=== PATIENT | female | born 1945 | race Hispanic/Latino ===

== ENCOUNTER → 2018-07-04 | Outpatient (CLI) | payer OTHER ==
[~2018-07-04] MED LIST: ACETAMINOPHEN500 MG PO; ACYCLOVIR 5% TP; ADVAIR 250-501 EACH INH; AMITIZA24 MCG PO; ASPIRIN81 MG PO; ATORVASTATIN CA40 MG PO; Aspirin PO; BIOTIN2500 MCG PO; CARVEDILOL12.5 MG PO; CEPHALEXIN500 MG PO; CLOPIDOGREL75 MG PO; DEXILANT60 MG PO; FERROUS SULFAT325 MG PO; FEXOFENADINE H180 MG PO; LEVOTHYROXINE100 MCG PO; LOSARTAN POTAS100 MG PO; MULTIVITAMINS1 EAC7 PO; NITROSTAT0.4 MG SL; OMEGA 3-6-9 CO400 MG PO; PATADAY2.5 ML OU; TIMOLOL 0.5% OD; TRAVATAN Z5 ML OD; TRIAMCINOLONE A15 G1 TOP; ULTRAM50 MG PO; VALACYCLOVIR500 MG PO; VITAMIN C1000 MG PO; VITAMIN D PO; [UNRECOGNIZED DRUG - MIXTURE] TP
--- NOTE | 2018-07-04 11:28 | Diagnostic Imaging Report ---
EXAMINATION: Thyroid ultrasound. CLINICAL HISTORY: Thyroid nodule COMPARISON: Outside CT neck images DISCUSSION: Transverse and longitudinal images of the thyroid were obtained utilizing grayscale and color Doppler modalities. The right thyroid lobe measures 3.3 x 1.7 x 1.8 cm and shows normal echogenicity. Solid(2 points), hypoechoic (2 points), Wider than tall (0 point), smoothly marginated (0 points), no calcifications (0 points) nodule occupies the majority of the right lobe measures 2.9 x 1.6 x 1.5 cm. The left thyroid lobe measures 1.2 x 0.4 x 0.5 cm and shows normal echogenicity. No nodules are seen. The thyroid isthmus measures 0.2 cm and shows normal echogenicity. No nodules are seen. There is no adenopathy. IMPRESSION: Right thyroid nodule, TIRADS 4, FNA recommended and subsequently performed 07/04/18. Signed by: Dr. Vasu Etienne M.D. on 07/04/2018 11:25 AM
--- NOTE | 2018-07-04 14:13 | Diagnostic Imaging Report ---
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 Etienne Pre-operative diagnosis: Right thyroid nodule Post-operative diagnosis: Right thyroid nodule Conscious Sedation: None The patient's heart rate and pulse oximetry were continuously monitored by the interventional radiology nurse. Blood pressure was monitored at 5 minute intervals. Additional Medications: Lidocaine 1% for local anesthesia Estimated blood loss: Minimal Blood products administered: None Specimens: Fine-needle aspiration x5 Implants: None DISCUSSION: Informed consent was obtained and documented in the medical record. Patient was placed in the supine position on the sonographic table. The neck was prepped and draped in the standard sterile fashion. A suitable percutaneous approach to the right thyroid nodule is identified and 1% lidocaine was infiltrated into the skin and subcutaneous tissues for local anesthesia. Then under continuous sonographic guidance a total of 5 fine needle aspiration specimens were obtained using 25-gauge needles. Specimens were submitted to on-site cytopathology personnel and adequacy was confirmed. At the conclusion of sampling a sterile dressing was applied. The patient tolerated the procedure well without immediate complication. IMPRESSION: Successful ultrasound-guided fine-needle aspiration of a right thyroid nodule. Signed by: Dr. Vasu Etienne M.D. on 07/04/2018 2:09 PM
== END ==
LOC: US 09:23
PROVIDERS: ATTEND Otolaryngology
DX: E04.1 Nontoxic single thyroid nodule (principal)
CPT/HCPCS: 10005; 76536; 88112; 88172; 88173

== ENCOUNTER 2018-12-30 08:50 | Outpatient (RCR) | payer MEDICARE, OTHER ==
[~2018-12-30 08:50] MED LIST changes: +ACETAMINOPHEN 1000 MG/100 ML 100 ML IV ONE
== END 2018-12-31 ==
LOC: PT 08:50
PROVIDERS: ATTEND Specialist
DX: S70.01XA Contusion of right hip, initial encounter (principal); M25.551 Pain in right hip; M54.5 Low back pain; M62.81 Muscle weakness (generalized); R26.2 Difficulty in walking, not elsewhere classified; Z96.651 Presence of right artificial knee joint; Z96.641 Presence of right artificial hip joint
CPT/HCPCS: 97110 ×11; 97161; J0131

== ENCOUNTER → 2019-01-24 | Outpatient (CLI) | payer OTHER ==
[~2019-01-24] MED LIST changes: -ACETAMINOPHEN 1000 MG/100 ML 100 ML IV ONE
--- NOTE | 2019-01-24 09:56 | Diagnostic Imaging Report ---
Exam: Thyroid ultrasound Indication: Thyroid nodule Comparison: Thyroid ultrasound of 07/04/2018 DISCUSSION: Transverse and longitudinal images of the thyroid were obtained utilizing grayscale and color Doppler modalities. The right thyroid lobe measures 4.0 x 2.1 x 2.2 cm and shows normal echogenicity. Solid(2 points), hypoechoic (2 points), Wider than tall (0 point), smoothly marginated (0 points), no calcifications (0 points) nodule measures 3.1 x 1.8 x 1.6 cm, similar to the prior ultrasound of 07/04/2018 allowing for differences in technique. The left thyroid lobe measures 1.4 x 0.6 x 0.7 cm and shows normal echogenicity. No nodules are seen. The thyroid isthmus measures 0.2 cm and shows normal echogenicity. No nodules are seen. There is no adenopathy. IMPRESSION: Right thyroid nodule (TIRADS 4) appears similar compared to 07/04/2018. ACR glossary of thyroid rads TI-RADS 1: No focal lesion. TI-RADS 2: Not suspicious. TI-RADS 3: Mildly suspicious (recommend FNA is greater than or equal to 2.5 cm; follow-up at 1, 3, and 5 years if greater than or equal to 1.5 cm) TI-RADS 4: Moderately Suspicious (recommend FNA is greater than or equal to 1.5 cm; follow-up at 1, 2, 3, and 5 years) TI-RADS 5: Highly suspicious (recommend FNA is greater than or equal to 10 mm) TI-RADS 6: Biopsy-proven malignancy Signed by: Tania Koehler MD on 01/24/2019 9:53 AM
== END ==
LOC: US 08:18
PROVIDERS: ATTEND Otolaryngology
DX: E04.1 Nontoxic single thyroid nodule (principal)
CPT/HCPCS: 76536

== ENCOUNTER → 2019-06-22 | Outpatient (CLI) | payer OTHER ==
--- NOTE | 2019-06-22 11:54 | Diagnostic Imaging Report ---
Exam: Thyroid ultrasound Clinical History: Thyroid nodules Findings: Transverse and longitudinal images of the thyroid gland were obtained. The right and the left lobe measured 3.8 x 1.5 x 1.9 cm and 3.4 x 0.8 x 1.2 cm respectively. The isthmus measured 1 mm in thickness. Indication: Region right lobe, 0.9 x 1.5 x 1.9 cm heterogeneously appearing isoechoic solid nodule is noted. It is hypervascular on color Doppler demonstrates area of hypoechogenicity which may represent microcalcifications. Impression: 1. Right lobe thyroid nodule as described. If indicated, tissue diagnosis can be performed for further assessment. Signed by: Dr. Yoav Wilson MD on 06/22/2019 11:51 AM
== END ==
LOC: US 10:41
PROVIDERS: ATTEND Otolaryngology
DX: E04.1 Nontoxic single thyroid nodule (principal)
CPT/HCPCS: 76536

== ENCOUNTER → 2020-06-11 | Outpatient (CLI) | payer MEDICARE, OTHER | LOC: US 14:42 | PROVIDERS: ATTEND Otolaryngology | DX: E04.1 Nontoxic single thyroid nodule (principal) | CPT/HCPCS: 76536 ==

== ENCOUNTER → 2021-04-09 | Outpatient (CLI) | payer MEDICARE, OTHER | LOC: DX 08:17 | PROVIDERS: ATTEND Otolaryngology | DX: R13.13 Dysphagia, pharyngeal phase (principal); Z20.822 Contact with and (suspected) exposure to COVID-19 | CPT/HCPCS: 74230; 92526; 92611; U0002 ==

== ENCOUNTER → 2021-04-17 | Outpatient (CLI) | payer MEDICARE, OTHER | LOC: US 07:57 | PROVIDERS: ATTEND Nurse Practitioner Family | DX: Q61.9 Cystic kidney disease, unspecified (principal) | CPT/HCPCS: 76770 ==

== ENCOUNTER → 2021-06-11 | Outpatient (CLI) | payer MEDICARE, OTHER | LOC: US 11:34 | PROVIDERS: ATTEND Otolaryngology | DX: E04.2 Nontoxic multinodular goiter (principal) | CPT/HCPCS: 76536 ==

== ENCOUNTER → 2021-07-07 | Outpatient (CLI) | payer MEDICARE, OTHER | LOC: US 11:55 | PROVIDERS: ATTEND Nurse Practitioner Family | DX: Q61.9 Cystic kidney disease, unspecified (principal) | CPT/HCPCS: 76770 ==

== ENCOUNTER → 2022-06-17 | Outpatient (CLI) | payer MEDICARE, OTHER | LOC: US 09:02 | PROVIDERS: ATTEND Otolaryngology | DX: E04.1 Nontoxic single thyroid nodule (principal) | CPT/HCPCS: 76536 ==

== ENCOUNTER 2022-08-27 09:00 | Outpatient (RCR) | payer MEDICARE, OTHER | END 2022-08-30 | LOC: PT 09:00 | PROVIDERS: ATTEND Psychiatry & Neurology Clinical Neurophysiology | DX: M54.17 Radiculopathy, lumbosacral region (principal) ==

== ENCOUNTER 2022-09-22 07:59 | Outpatient (RCR) | payer MEDICARE, OTHER | END 2022-09-30 | LOC: PT 07:59 | PROVIDERS: ATTEND Psychiatry & Neurology Clinical Neurophysiology | DX: M54.17 Radiculopathy, lumbosacral region (principal) ==

== ENCOUNTER → 2024-08-17 | Outpatient (REF) | payer MEDICARE | LOC: RAD 11:16 | PROVIDERS: ATTEND Internal Medicine Critical Care Medicine | DX: R06.00 Dyspnea, unspecified (principal) | CPT/HCPCS: 71046 ==

== ENCOUNTER 2024-12-28 10:00 | Outpatient (RCR) | payer MEDICARE | END 2024-12-31 | LOC: PT 10:00 | PROVIDERS: ATTEND Anesthesiology Pain Medicine | DX: M25.562 Pain in left knee (principal); M54.2 Cervicalgia; M54.9 Dorsalgia, unspecified ==